=== PATIENT | male | born 1995 | race Caucasian/White ===

== ENCOUNTER 2023-03-06 22:08 | Emergency (ER) | payer SELFPAY ==
[2023-03-06 22:10] VITALS: BP 127/76; PULSE 90
== END 2023-03-06 22:35 | disposition home or self-care (01) ==
LOC: LL.ED 22:08
DX: S01.91XA Laceration without foreign body of unspecified part of head, initial encounter (principal)
CPT/HCPCS: 99283

== ENCOUNTER 2023-03-11 11:09 | Emergency (ER) | payer SELFPAY ==
[2023-03-11] MEDS ORDERED: traMADol 50 MG Tab PO ONE (14:06)
[2023-03-11 14:42] VITALS: BP 145/75; PULSE 93
== END 2023-03-11 14:20 | disposition home or self-care (01) ==
LOC: LL.ED 11:09
DX: S01.311A Laceration without foreign body of right ear, initial encounter (principal); W00.9XXA Unspecified fall due to ice and snow, initial encounter
CPT/HCPCS: 12011; 99283; A9270-GY

== ENCOUNTER 2023-09-13 22:28 | Emergency (ER) | payer SELFPAY ==
[2023-09-13 22:38] VITALS: PULSE 101
[2023-09-13] MEDS: Tetracaine HCl/PF 0.5% 4 ML Bottle EYEBOTH ONE (22:51)
[2023-09-13] MEDS: Erythromycin Base 0.5% Ophth Oint 3.5 GM Tube EYERT ONE (22:51)
[2023-09-13 23:01] VITALS: BP 123/86
== END 2023-09-13 22:59 | disposition home or self-care (01) ==
LOC: LL.ED 22:28
DX: T15.01XA Foreign body in cornea, right eye, initial encounter (principal); W44.9XXA Unspecified foreign body entering into or through a natural orifice, initial encounter
CPT/HCPCS: 65220; 99282-25; A9270-GY; J3490